=== PATIENT | female | born 1990 | race Caucasian/White ===

== ENCOUNTER 2023-08-03 00:57 | Emergency (ER) | payer SELFPAY ==
[~2023-08-03] VITALS: Ht 167.6 cm; Wt 92.0 kg
[2023-08-03 01:03] VITALS: O2SAT 99
[2023-08-03 01:39] LABS: BASOPHILS % 0.4 % (0.0-2.0); EOSINOPHILS % 0.7 % (0.0-5.0); HEMATOCRIT. 40.5 % (36.0-48.0); HEMOGLOBIN. 13.3 g/dL (12.0-16.0); LYMPHOCYTES % 15.4 % (20.0-50.0); MEAN CORPUSCULAR HEMOGLOBIN 29.8 pg (28.0-32.0); MEAN CORPUSCULAR HGB CONC 32.7 g/dL (31.0-37.0); MONOCYTES % 5.2 % (2.0-8.0); NEUTROPHILS % 78.3 % (40.0-76.0); PLATELET 334 x1000/uL (130-400); RED BLOOD CELL COUNT 4.45 mill/uL (4.2-5.4); RED CELL DISTRIBUTION WIDTH 12.9 % (11.6-14.6); WHITE BLOOD COUNT 12.8 x1000/uL (4.5-11.0)
[2023-08-03 01:45] LABS: CARBON DIOXIDE 18 mEq/L (21-32); CHLORIDE 111 mEq/L (98-107); POTASSIUM 3.3 mEq/L (3.5-5.1); SODIUM 141 mEq/L (136-145)
[2023-08-03 01:46] LABS: CALCIUM 9.4 mg/dL (8.7-10.4)
[2023-08-03 01:51] LABS: CREATININE 0.9 mg/dL (0.6-1.0); ETHANOL BLOOD 270 mg/dL (<10); GLUCOSE 96 mg/dL (70-105); UREA NITROGEN BLOOD 12 mg/dL (9-23)
[2023-08-03 01:58] LABS: HCG SCREEN NEGATIVE
[2023-08-03 09:52] VITALS: BP 99/69; PULSE 86; RESP 16; TEMP 98.4
== END 2023-08-03 11:12 | disposition home or self-care (01) ==
LOC: ER 00:57
DX: F10.129 Alcohol abuse with intoxication, unspecified (principal); Y90.8 Blood alcohol level of 240 mg/100 ml or more
CPT/HCPCS: 36415; 70486; 80048; 80320; 84703; 85025; 99285; G0480